=== PATIENT | female | born 1970 | race African-American/Black ===

== ENCOUNTER 2018-10-25 20:51 | Emergency (ER) | payer BC ==
--- NOTE | 2018-10-25 21:26 | EDPHYS ---
Physician Documentation [facility] Name: Batool Last Age: 48 yrs Sex: Female : 1970 Arrival Date: 10/25/2018 Time: 20:54 Bed 13 Private MD: ED Physician Sarbjit Arthur HPI: 10/25 21:07 This 48 yrs old Black Female presents to ER via Unassigned with complaints of Fall snw Injury. 21:07 Details of fall: The patient fell from an upright position, [facility]. Onset: The symptoms/episode began/occurred suddenly, just prior to arrival. Associated injuries: The patient sustained injury to the head, contusion, right lateral aspect of neck, strain. Severity of symptoms: At their worst the symptoms were very mild. It is unknown whether or not the patient has had similar symptoms in the past. It is unknown whether or not the patient has recently seen a physician. 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 - Social history:: Smoking status: Patient/guardian denies using tobacco, never smoked. - Ebola Screening: : No symptoms or risks identified at this time. ROS: 21:05 Constitutional: Negative for fever, chills, and weight loss, Eyes: Negative for injury, snw pain, redness, and discharge, ENT: Negative for injury, pain, and discharge, Neck: Negative for injury, pain, and swelling, Cardiovascular: Negative for chest pain, palpitations, and edema, Respiratory: Negative for shortness of breath, cough, wheezing, and pleuritic chest pain, Abdomen/GI: Negative for abdominal pain, nausea, vomiting, diarrhea, and constipation, Back: Negative for injury and pain, : Negative for injury, bleeding, discharge, and swelling, Skin: Negative for injury, rash, and discoloration, Neuro: Negative for headache, weakness, numbness, tingling, and seizure. 21:05 MS/extremity: Positive for injury or acute deformity, of the right lateral aspect of neck. Exam: 21:05 Constitutional: This is a well developed, well nourished patient who is awake, alert, snw and in no acute distress. Head/Face: Normocephalic, atraumatic. Eyes: Pupils equal round and reactive to light, extra-ocular motions intact. Lids and lashes normal. Conjunctiva and sclera are non-icteric and not injected. Cornea within normal limits. Periorbital areas with no swelling, redness, or edema. ENT: Nares patent. No nasal discharge, no septal abnormalities noted. Tympanic membranes are normal and external auditory canals are clear. Oropharynx with no redness, swelling, or masses, exudates, or evidence of obstruction, uvula midline. Mucous membranes moist. Chest/axilla: Normal chest wall appearance and motion. Nontender with no deformity. No lesions are appreciated. Cardiovascular: Regular rate and rhythm with a normal S1 and S2. No gallops, murmurs, or rubs. Normal PMI, no JVD. No pulse deficits. Respiratory: Lungs have equal breath sounds bilaterally, clear to auscultation and percussion. No rales, rhonchi or wheezes noted. No increased work of breathing, no retractions or nasal flaring. Abdomen/GI: Soft, non-tender, with normal bowel sounds. No distension or tympany. No guarding or rebound. No evidence of tenderness throughout. Back: No spinal tenderness. No costovertebral tenderness. Full range of motion. Skin: Warm, dry with normal turgor. Normal color with no rashes, no lesions, and no evidence of cellulitis. MS/ Extremity: Pulses equal, no cyanosis. Neurovascular intact. Full, normal range of motion. Neuro: Awake and alert, GCS 15, oriented to person, place, time, and situation. Cranial nerves II-XII grossly intact. Motor strength 5/5 in all extremities. Sensory grossly intact. Cerebellar exam normal. Normal gait. 21:05 Neck: External neck: tenderness, that is mild, that is moderate, of the right lateral aspect of neck, ROM/movement: pain, that is mild, with extension, Lymph nodes: no appreciated lymphadenopathy. Vital Signs: 20:49 BP 158 / 91; Pulse 72; Resp 18 S; Temp 98.3(TE); Pulse Ox 100% on R/A; Weight 117.93 kg cc3 (R); Height 5 ft. 8 in. (172.72 cm) (R); 20:49 Body Mass Index 39.53 (117.93 kg, 172.72 cm) cc3 MDM: 20:54 Patient medically screened. snw 21:04 Data interpreted: Pulse oximetry: on room air is 99 %. Interpretation: normal. snw Counseling: I had a detailed discussion with the patient and/or guardian regarding: the historical points, exam findings, and any diagnostic results supporting the discharge/admit diagnosis. ED course: declines pain medications and states she will take some aleve when she gets home. 10/26 02:04 Data reviewed: vital signs, nurses notes. snw 10/25 20:58 Order name: Chest Single View XRAY snw Administered Medications: No medications were administered Disposition: 10/25/18 21:25 Discharged to Home. Impression: Fall on same level from slipping, tripping and stumbling, Superficial injury of head, Strain of muscle, fascia and tendon at neck level. - Condition is Stable. - Discharge Instructions: Head Injury, Adult, Fall Prevention in the Home, Muscle Strain, Heat Therapy. - Prescriptions for orphenadrine citrate 100 mg Oral Tablet Sustained Release - take 1 tablet by ORAL route 2 times per day As needed; 20 tablet. - Work release form, Medication Reconciliation Form, Thank You Letter, Antibiotic Education, Prescription Opioid Use form. - Follow up: Private Physician; When: 2 - 3 days; Reason: Recheck today's complaints, Continuance of care, Re-evaluation by your physician. Follow up: Emergency Department; When: As needed; Reason: Worsening of condition. Addendum: 10/27/2018 08:26 Co-signature as Attending Physician, Sarbjit Arthur MD I agree with the assessment and c herrera plan of care. Signatures: Dispatcher [employer] Sarbjit Go MD MD cha Therrien, Shelly, MANAGER OF INTERNAL-C MANAGER OF INTERNAL-Ruyw Annika Redd cc3 Corrections: (The following items were deleted from the chart) 10/25 21:07 21:05 MS/extremity: Positive for injury or acute deformity, of the left lateral aspect snw of neck, snw 21:48 21:25 10/25/2018 21:25 Discharged to Home. Impression: Fall on same level from cc3 slipping, tripping and stumbling; Superficial injury of head; Strain of muscle, fascia and tendon at neck level. Condition is Stable. Forms are Medication Reconciliation Form, Thank You Letter, Antibiotic Education, Prescription Opioid Use. Follow up: Private Physician; When: 2 - 3 days; Reason: Recheck today's complaints, Continuance of care, Re-evaluation by your physician. Follow up: Emergency Department; When: As needed; Reason: Worsening of condition. snw
--- NOTE | 2018-10-25 21:26 | ER ---
Nurse's Notes [facility] Name: Batool Last Age: 48 yrs Sex: Female : 1970 Arrival Date: 10/25/2018 Time: 20:54 Bed 13 Private MD: Diagnosis: Fall on same level from slipping, tripping and stumbling;Superficial injury of head;Strain of muscle, fascia and tendon at neck level Presentation: 10/25 20:49 Presenting complaint: EMS states: "Right shoulder pain sustained from slipping on the cc3 floor". Transition of care: patient was not received from another setting of care. Onset of symptoms was October 25, 2018. Risk Assessment: Do you want to hurt yourself or someone else? Patient reports no desire to harm self or others. Initial Sepsis Screen: Does the patient meet any 2 criteria? No. Patient's initial sepsis screen is negative. Does the patient have a suspected source of infection? No. Patient's initial sepsis screen is negative. Care prior to arrival: None. 20:49 Method Of Arrival: EMS: [facility] cc3 20:49 Acuity: SILVANA 3 cc3 Triage Assessment: 21:14 General: Appears in no apparent distress. comfortable, Behavior is calm, cooperative, cc3 appropriate for age. Pain: Complains of pain in right lateral aspect of neck, right shoulder. EENT: No signs and/or symptoms were reported regarding the EENT system. Neuro: Level of Consciousness is awake, alert, obeys commands, Oriented to person, place, time, situation, Appropriate for age. Cardiovascular: Denies chest pain, Patient's skin is warm and dry. Respiratory: Airway is patent Respiratory effort is even, unlabored, Respiratory pattern is regular, symmetrical. GI: Abdomen is round obese. : No signs and/or symptoms were reported regarding the genitourinary system. Derm: No signs and/or symptoms reported regarding the dermatologic system. Musculoskeletal: Circulation, motion, and sensation intact. Range of motion: intact in all extremities. 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 - Social history:: Smoking status: Patient/guardian denies using tobacco, never smoked. - Ebola Screening: : No symptoms or risks identified at this time. Screenin:14 Abuse screen: Denies threats or abuse. Denies injuries from another. Nutritional cc3 screening: No deficits noted. Tuberculosis screening: No symptoms or risk factors identified. Fall Risk Ambulatory Aid- None/Bed Rest/Nurse Assist (0 pts). Gait- Normal/Bed Rest/Wheelchair (0 pts) Mental Status- Oriented to own ability (0 pts). Assessment: 21:14 General: see triage assessment. cc3 21:45 Reassessment: Patient appears in no apparent distress at this time. Patient and/or cc3 family updated on plan of care and expected duration. Pain level reassessed. Patient is alert, oriented x 3, equal unlabored respirations, skin warm/dry/pink. CLAUDETTE Strange discharged the patient home with prescription given. No IV cannula in situ. Patient left ER vitally stable and ambulatory with her family. Patient states feeling better. Patient states symptoms have improved. Vital Signs: 20:49 BP 158 / 91; Pulse 72; Resp 18 S; Temp 98.3(TE); Pulse Ox 100% on R/A; Weight 117.93 kg cc3 (R); Height 5 ft. 8 in. (172.72 cm) (R); 20:49 Body Mass Index 39.53 (117.93 kg, 172.72 cm) cc3 ED Course: 20:54 Patient arrived in ED. ds1 20:54 Alie Rivera FNP-C is PHCP. snw 20:54 Sarbjit Arthur MD is Attending Physician. snw 21:13 Chest Single View XRAY In Process Unspecified. EDMS 21:14 Annika Redd is Primary Nurse. cc3 21:14 Patient has correct armband on for positive identification. Placed in gown. Bed in low cc3 position. Call light in reach. Pulse ox on. NIBP on. 21:14 Arm band placed on right wrist. Patient notified of wait time. cc3 21:21 Triage completed. cc3 21:45 No provider procedures requiring assistance completed. Patient did not have IV access cc3 during this emergency room visit. Administered Medications: No medications were administered Outcome: 21:25 Discharge ordered by . josue 21:45 Discharged to home ambulatory, with family. cc3 21:45 Condition: stable 21:45 Discharge instructions given to patient, family, Instructed on discharge instructions, follow up and referral plans. medication usage, Demonstrated understanding of instructions, follow-up care, medications, Prescriptions given X 1. 21:48 Patient left the ED. cc3 Signatures: Dispatcher [employer] EDSC Alie Rivera, YURIDIA SYSTEMS AUDITOR-Martita Whitehead dsAnnika Paniagua cc3
--- NOTE | 2018-10-25 23:52 | RAD REPORT ---
EXAM DESCRIPTION: Randal Single View10/25/2018 9:11 pm CLINICAL HISTORY: Chest pain COMPARISON: none FINDINGS: The lungs appear clear of acute infiltrate. The heart is mildly enlarged IMPRESSION: No acute abnormalities displayed
== END 2018-10-25 21:48 | disposition home or self-care (01) ==
LOC: ER 20:51
DX: S00.90XA Unspecified superficial injury of unspecified part of head, initial encounter (principal); S16.1XXA Strain of muscle, fascia and tendon at neck level, initial encounter; W01.0XXA Fall on same level from slipping, tripping and stumbling without subsequent striking against object, initial encounter; Y92.511 Restaurant or cafe as the place of occurrence of the external cause; I10 Essential (primary) hypertension
CPT/HCPCS: 71045; 99284

== ENCOUNTER 2022-04-16 10:26 | Day surgery (SDC) | payer BC ==
[2022-04-12 16:26] LABS: Absolute Lymphocytes (CBC) 3.1 K/uL (0.7-4.9); Hematocrit 34.8 % (36.0-45.0); Lymphocytes % 30.5 % (15.3-44.8); MCV 75.7 fL (80-100); RBC Red Blood Cell Count 4.59 M/uL (3.86-4.86)
[2022-04-12 16:32] LABS: Specific Gravity 1.021 (1.005-1.030); Urine Bacteria <20 /HPF (<20); Urine Bilirubin NEGATIVE (Negative); Urine Blood Negative (Negative); Urine Clarity Clear (Clear); Urine Color Yellow (Yellow); Urine Glucose NEGATIVE (Negative); Urine Mucus 2+ /HPF (None Seen); Urine Protein TRACE (Negative); Urine RBC <5 /HPF (None Seen); Urine Urobilinogen Normal (Normal); Urine pH 6.5 (5.0-7.0)
[2022-04-16] MEDS ORDERED: SCOPOLAMINE HYDROBROMIDE PATCH TD ONE (11:04)
[2022-04-16] MEDS ORDERED: CEFAZOLIN 3 GM in NA CHLORIDE 0.9% 100 ML IVPB ONE (11:15)
[2022-04-16] MEDS ORDERED: CELECOXIB 100 MG CAPSULE ONE (11:19)
[2022-04-16] MEDS ORDERED: ACETAMINOPHEN 500 MG TAB ONE (11:19)
[2022-04-16 11:32] LABS: Urine Specific Gravity/Preg 1.025 (1.005-1.030)
[2022-04-16] MEDS: BUPIVACAINE 0.25% PF 30 ML VIAL ONE ×2 (12:19→13:26)
[2022-04-16] MEDS ORDERED: propofoL 200 MG/20 ML VIAL IV ONE (12:24)
[2022-04-16] MEDS ORDERED: FENTANYL CITR 100 MCG/2 ML ONE ×3 (12:24→16:07)
[2022-04-16] MEDS ORDERED: ROCURONIUM 50 MG/5 ML VIAL IV ONE (12:25)
[2022-04-16] MEDS ORDERED: ONDANSETRON 4 MG/2 ML VIAL ONE (12:26)
[2022-04-16] MEDS ORDERED: MIDAZOLAM HCL 2 MG/2 ML INJ ONE (12:26)
[2022-04-16] MEDS ORDERED: LIDOCAINE 2% MPF 5 ML VIAL ONE (12:26)
[2022-04-16] MEDS ORDERED: dexAMETHasone 4 MG/ML VIAL ONE ×2 (13:21→15:19)
[2022-04-16] MEDS ORDERED: VECURONIUM 10 MG/VIAL IV ONE (13:24)
[2022-04-16] MEDS ORDERED: KETOROLAC 30 MG/ML INJ ONE (15:19)
[2022-04-16] MEDS: Ringers Lactate 1,000 ML IV ONE ×2 (15:23→15:27)
[2022-04-16] MEDS ORDERED: Ringers Lactate 1,000 ML IV ONE (15:25)
[2022-04-16] MEDS ORDERED: HYDROCODONE/APAP 5/325 MG TAB ONE (17:49)
[2022-04-16 19:33] VITALS: BP 128/5; TEMP 97.1; O2SAT 100
--- NOTE | 2022-04-17 00:57 | OP ---
Date of Procedure: 04/16/2022 Surgeon: Saniya Shipman MD Plaster Machine Operator: Nilsa Hernandez. Preoperative Diagnoses: Menorrhagia, iron-deficiency anemia, and leiomyomata of the uterus. Postoperative Diagnoses: Menorrhagia, iron-deficiency anemia, and leiomyomata of the uterus. Procedures Performed: Total laparoscopic hysterectomy, bilateral salpingectomy, vaginal morcellation and cystoscopy. Anesthesia: General endotracheal. Ebl: 100. Urine Output: 200. Fluids: 1200 LR. Complications: None. Drains: None. Condition: Stable. Specimens: Uterus that is morcellated with fibroids on the side and tubes. Findings: Uterus was significantly enlarged with multiple large fibroids on morcellation through the vagina. The entire specimen was removed without any problems. Tubes were removed in 2 portions on each side. Ovaries were completely unremarkable and intact. On cystoscopy, both ureteric orifices were well visualized and had strong jets of urine from both and th ere was no evidence of any trauma to the bladder. This is a limited post procedure cystoscopy. Indications: The patient is a 52-year-old who presented with bleeding and anemia, referred to me by her primary care provider in [facility]. Her hemoglobin was 10.4 g at the initial visit. Signif icantly large fibroids. On ultrasound, she had multiple leiomyomata with the largest 6.9, next 5.9, and then several other smaller than that and a total of at least 5 were noted. 5.5, 5.7, pretty larg e leiomyomata. Then endometrial was sampled and there was no atypia or malignancy or leiomyosarcoma. I discussed about all the benefits and risks and alternatives of treatment of fibroids including la paroscopic myomectomy, uterine artery embolization, medical treatment for fibroids, and surgical dara tment definitively including hysterectomy. Description Of Procedure: After reviewing all the benefits and risks, the patient proceeded to conse nt for preservation of ovaries with removal of uterus and tubes. Possible vaginal morcellation and p ossible laparotomy were all discussed with the patient and she was consented and brought to the OR. 3 g of Ancef were given. SCDs were placed. A time-out was done. After patient was placed in a supi ne fashion on the operating table, general anesthesia was given. She was placed in a dorsal lithotom y position. Abdomen, vulva, vagina, and perineum were prepped and draped in a sterile fashion. Fole y was placed to drain the bladder and large VCare introduced into the uterus and fixed in place. Fol ey was attached for retrograde filling. A 1 cm supraumbilical incision was made with scalpel using the open laparoscopy technique. Fascia wa s incised and tagged with 0 Vicryl sutures on each side and peritoneum entered bluntly. S retractors were placed, Comfort introduced and after adequate insufflation, site of entry was checked and was un remarkable. Other abdominal surfaces were unremarkable as well. The patient was placed in Trendelen ramesh position, approximately 20 degrees and then pelvic survey was performed. Both ureters were visu alized from the pelvic brim to the ureteric tunnel on both sides without any significant distortion; however, the fibroids were large enough to enlarge the vessels and so after having a good visualizati on of the vessels and the relation to the ureters, procedure was started. The tubes were removed wit h the LigaSure. Then, the peritoneum under the round ligament between the uteroovarian and round was opened up. Then the round ligament was taken down with the help of the LigaSure. Anterior peritone um was taken down to raise the bladder flap all the way to the opposite round ligament with the help of the LigaSure. Then, the round ligament on the right side was taken down to utero-ovarian ligament and broad ligament and mesosalpinx taken down. Posterior peritoneum was incised all the way to the uterosacrals on both sides. Ureters were dissected and uterine vessels were isolated seeing the rela tionship of the place that these were crossing over. Then vessels were taken down after the bladder flap was fully raised and the bladder was dissected at least a cm and half below the cup and the vess els were taken down with the help of the LigaSure as well as bipolar and curved [place]. Then these were cut with the help of the LigaSure and then the cardinal ligaments were taken down with the help of the bipolar and monopolar. Anterior colpotomy was performed with a monopolar hook blade and then off to the sides the dissection was performed with the help of the LigaSure and then posteriorly, th e uterosacral ligament attachment was taken down with the help of the LigaSure and then the bipolar w as used for taking down the cardinal ligaments. Colpotomy performed with a monopolar hook blade alvarez woods it all the way back posteriorly from the right side to the left and then taking the left side down . The specimen was pulled out through the vagina. Romano speculum was placed in the posterior wall and 2 small were placed in the anterior vaginal canal and using mass clamps, the specimen was pulled out through the vagina and morcellated progressively. It took about 25 minutes for me extract the entire uterus and this was handed off for permanent path ology. Then vaginal closure was placed then went back laparoscopically, after changing gloves and go wn. Thorough irrigation and suction were performed and at 5 o'clock position, there was hemostasis t o be secured with the help of the tip of a bipolar and that was done. Thorough irrigation and suction were performed again and 0 Vicryl suture simple was used to close the angles and then 3 [id number] in the center including the uterosacrals back to the vaginal cuff . Thorough irrigation and suction were performed. No evidence of electrical, mechanical, or thermal injury to the ureters. The trocars were removed under direct vision and gas was desufflated. The o varies were vascular and intact. Fascia at the umbilicus was closed with the tag 0 Vicryl sutures ti ed to each of the subcutaneous and another 0 Vicryl simple stitch and then a simple 0 Vicryl stitch o n the fascia at the suprapubic area. All interrupted 4-0 chromic at the subcutaneous sites for closu re. Lyles was removed, vaginal occluding sponge was removed and then the cystoscopy performed with 17-Michele nch sheath, 30-degree lens normal saline. There was excellent visualization of the base of the bladd er and area above the trigone. Both ureteric orifices were well visualized and there were strong jet s of urine from both. After the bladder was drained, then vagina was cleaned up. Instrument and spo nge counts x3 were correct at the end of the case. The patient tolerated the procedure well. She re covered from anesthesia and taken to PACU in stable condition. Her was debriefed about her p rocedure and her outcome. She will follow up with us after discharge today in 1 week. RENE/SUPRIYA Voice ID: [id number] Report ID: [id number]
== END 2022-04-16 19:35 | disposition home or self-care (01) ==
LOC: PRE 10:26 → OR 19:35
PROVIDERS: ATTEND Obstetrics & Gynecology
PROC: 0UT74ZZ Resection of Bilateral Fallopian Tubes, Percutaneous Endoscopic Approach (ICD-10-PCS; 2022-04-16)
PROC: 0UT94ZZ Resection of Uterus, Percutaneous Endoscopic Approach (ICD-10-PCS; principal; 2022-04-16 12:00)
DX: N92.0 Excessive and frequent menstruation with regular cycle (principal); D50.0 Iron deficiency anemia secondary to blood loss (chronic); D25.9 Leiomyoma of uterus, unspecified; I10 Essential (primary) hypertension; N88.8 Other specified noninflammatory disorders of cervix uteri; N83.8 Other noninflammatory disorders of ovary, fallopian tube and broad ligament
CPT/HCPCS: 85025; 81001; 36415; 86900; 86850; 81025; 86870; 86901; 88307; 86922 ×2; 58573; J2704; J1100 ×2; J2001; J2250; J3010 ×3; J7120 ×2; J2405; J0690

== ENCOUNTER 2023-11-06 16:26 | Emergency (ER) | payer BC ==
--- OUTSIDE RECORDS SUMMARY | 2023-11-06 16:31 | XMS REPORT | Continuity of Care Document ---
Author Name Unknown Address [address] [place] [address] [facility]connect Address [address] [facility] [address] [place] [address] Care Team Providers Care Game Author Name Role Phone Yuki GARNER, Sydnee Primary Care Physici an TREASURE JENKINS Attending Clinician Unavailable YULIET OAKLEY Attending Clinician Unavailable LAB90 Attending Clinician Unavailable SHAHID CAMPBELL Attending Clinician UnavailJOHN PAUL Bae Attending Clinician Unavailable LAB47 Attending Clinician Unavailable JOVANI NIETO Attending Clinician Unava ilESTEBAN Reyez Attending Clinician Unavailable YRN PAREDES Attending Clinician Unavailable [email or web address] Attending Clinician Unavaila napoleon LI MD Attending Clinician Unavailab SYDNEE Fonseca Attending Clinician Giselle ESTUARDO Marr Attending Clinician Unavailable EL MORGAN Attending Clinician Unavailable LENNY KAMINSKI Attending Clinician Unavailab FRANCHESCA Harvey Attending Clinician Unavailable Yuliet Dobbins Attending Clinician [phone] LAB45 Attending Clinician Unavailable Sydnee Mirza MD Attending Clinician YANETH HERNANDEZ Attending Clinician Unavailable [email or web address] Admitting Clinician YANETH Parra Admitting Clinician Unavailable Payers Payer Name Policy Type Policy Number Effective Date Expirati on Date Source BCBS 2 [id number] 2019 00:00:[place] [employer] [id number] 2020 00:00:[place] [id number] 2020 00:00:00 Problems Condition Name Condition Details Condition Category Status Onset Date Resolution Date Last Treatment Date Treating Clinician Comments Source Iron deficiency anemia due to chronic blood loss Iron deficiency anemia due to chronic blood loss Disease Active 8-15 00:00: 00 Leigh Seybold - Externa l Primary hypertensi on Primary hypertensi on Disease Active 2020-05 00:00: 00 Leigh Seybold - Externa l Hyperlipem ia Hyperlipem ia Disease Active 2020-05 00:00: 00 Leigh Seybold - Externa l Severe obesity (BMI 35.0-35.9 with comorbidit y) Severe obesity (BMI 35.0-35.9 with comorbidit y) Disease Active 2020-05 00:00: 00 Leigh Seybold - Externa l Family history of breast cancer in mother Family history of breast cancer in mother Disease Active 2020-05 00:00: 00 Leigh Sedaylinold - Externa l Anemia Anemia Disease Active 2020-05 00:00: 00 Leigh Seybold - Externa l Morbid obesity Morbid obesity Disease Active 2020-05 00:00: 00 Leigh Seybold - Externa l Social History Social Habit Start Date Stop Date Quantity Comments Source Gender identity Maryan ey Seybold - External Sexual orientation K elsey Seybold - External Exposure to SARS-CoV-2 (event) Not sure Leigh Se ybold History SDOH Alcohol Frequency Leigh Hall bold - External History SDOH Alcohol Std Drinks Leigh Hebert ybold - External History SDOH Alcohol Binge Leigh Hebertybold - External Alcoholic beverage intake 2023-10-14 00:00:00 2023-10-14 00:00:00 .14 /d Leigh Heebrtybold - External Tobacco use and exposure 2023-10-14 00:00:00 2023-10-14 00:00:00 Smokeless tobacco non-user Leigh Bautista - External Alcohol intake 2023-07-22 00:00:00 2023-07-22 00:00:00 .14 /d Leigh Bautista - External History of Social function 2023-01-30 00:00:00 2023-01-30 00:00:00 Leigh Bautista - External Alcohol Comment 2021-03-23 00:00:00 2021-03-23 00:00:00 rarely Leigh Bautista - External Sex [birth year] at 1970 00:00:00 1970 00:00:00 Leigh Bautista - External Smoking Status Start Date Stop Date Source Never smoked tobacco Leigh Bautista - External Medications Ordered Medication Name Filled Medication Name Start Date Stop Date Current Medication? Ordering Clinician Indication Dosage Frequency Signature (SIG) Comments Components Source Ketoconazol e 2 % apply externally Cream 10-13 08:05: 48 10-13 00:00 :00 No Leigh mancilla Losartan Potassium-H CTZ 50-12.5 MG oral Tablet 10-13 00:00: 00 Yes [id number] 1{tbl} Take 1 tablet by mouth 2 times daily. Leigh mancilla Carvedilol (Coreg) 3.125 MG oral Tablet 10-13 00:00: 00 Yes [id number] 3.125mg Take 1 tablet (3.125 mg total) by mouth in the morning and 1 tablet (3.125 mg total) in the evening. Take with meals. Leigh mancilla Rosuvastati n Calcium 10 MG oral Tablet 10-13 00:00: 00 Yes [id number] 10mg Take 1 tablet (10 mg total) by mouth daily. Leigh mancilla hydroCHLORO thiazide 25 MG oral Tablet 09-30 00:00: 00 10-13 00:00 :00 No [id number] 25mg Take 1 tablet (25 mg total) by mouth daily. Leigh mancilla Ergocalcife rol 1.25 MG (03875 UT) oral Capsule 2024-0 5-16 00:00: 00 Yes [id number] 70613S Take 1 capsule (50,000 units total) by mouth once a week. Leigh mancilla Losartan Potassium (COZAAR) 50 MG oral Tablet 09-24 00:00: 00 10-13 00:00 :00 No [id number] 50mg Take 1 tablet (50 mg total) by mouth daily. Leigh mancilla Rosuvastati n Calcium 20 MG oral Tablet 07-25 00:00: 00 10-13 00:00 :00 No [id number] 20mg Take 1 tablet (20 mg total) by mouth daily. Leigh mancilla NEOMYCIN-PO LYMYXIN-HC, OTIC, 1 % otic Solution - 00:00: 00 10-13 00:00 :00 No [id number] 42973 2[drp] Q.95217320 [id number] 3D Place 2 drops into the right ear 3 times daily as needed. Leigh mancilla PEG-ELECTRO LYTE SOLN (Golytely) 236 g oral Recon Soln 2022-05 2-28 00:00: 00 07-21 00:00 :00 No USE DIRECTED. Leigh mancilla ALBUTEROL HFA 108 (90 Base) MCG/ACT IN AERS 2022-05 0-17 00:00: 00 04-23 00:00 :00 No [id number] 2{puff} Q.25D TAKE 2 PUFFS BY MOUTH EVERY 6 HOURS NEEDED FOR WHEEZE Leigh mancilla Docusate Sodium (Stool Softener) 100 MG oral Capsule 20 16:04: 24 01-30 00:00 :00 No 100mg Take 1 capsule (100 mg total) by mouth every 24 hours Leigh mancilla Albuterol HFA 108 (90 Base) MCG/ACT IN AERS 920 00:00: 00 Yes [id number] 2{puff} Q.25D Inhale 2 puffs into the lungs every 6 hours as needed for wheezing. Leigh mancilla Promethazin e-DM 6.25-15 MG/5ML oral Syrup 01-30 00:00: 00 04-23 00:00 :00 No [id number] 5mL Q.25D Take 5 mL by mouth 4 times daily as needed for cough. Leigh mancilla Benzonatate (Tessalon Perles) 100 MG oral Capsule 01-30 00:00: 00 04-23 00:00 :00 No [id number] 100mg Q.34935425 [id number] 3D Take 1 capsule (100 mg total) by mouth 3 times daily as needed for cough. Leigh mancilla methylPREDN ISolone 4 MG oral Tablet Therapy Pack 01-30 00:00: 00 04-23 00:00 :00 No [id number] 1{lauri} Take 1 lauri by mouth See Admin Instructio ns Use as directed. Leigh mancilla Amoxicillin -Pot Clavulanate 875-125 MG oral Tablet 01-28 00:00: 00 04-23 00:00 :00 No 1{tbl} Take 1 tablet by mouth 2 times daily. Leigh mancilla FLUTICASONE PROPIONATE, NASAL, 50 MCG/ACT nasal Suspension 01-28 00:00: 00 04-23 00:00 :00 No 100ug Use 2 sprays (100 mcg total) in each nostril daily. Leigh mancilla Iron Dextran (INFED) 975 mg in sodium chloride 0.9 % 500 mL infusion 01-22 17:45: 00 01-22 19:17 :00 No [id number] 975mg 975 mg, at 500 mL/hr, Administer over 60 Minutes, intravenou s, ONCE, On Sat01/22/23 at 1245, For 1 dose, Solumedrol is recommende d only if patient has: Asthma, or Allergy to more than one drug, or History of inflammato ry arthritis. Solu-Medro l is recommende d only if the patient has: None of the below. Please indicate the Primary and Secondary diagnoses for Iron Treatment: Primary diagnosis: D50.0 Iron deficiency anemia secondary to blood loss Secondary diagnosis: K90.4 Malabsorpt ion due to intoleranc e, not elsewhere classified Monitor and record vital signs at the completion of the Infed infusion. Leigh mancilla Iron Dextran (INFED) 25 mg in sodium chloride 0.9 % 50 mL infusion 01-22 17:30: 00 01-22 17:20 :00 No [id number] 25mg 25 mg, at 300 mL/hr, Administer over 10 Minutes, intravenou s, ONCE, On Sat01/22/23 at 1230, For 1 dose, Observe the patient for at least 1 hour after test dose administra tion. Monitor and record vital signs at 15 minutes, 30 minutes, and 60 minutes for 1 hour observatio n. Leigh mancilla Docusate Sodium (Stool Softener) 100 MG oral Capsule 12-25 14:06: 46 Yes 100mg Take 1 capsule (100 mg total) by mouth every 24 hours Leigh mancilla Docusate Sodium (Stool Softener) 100 MG oral Capsule 12-17 15:33: 31 Yes 100mg Take 1 capsule (100 mg total) by mouth every 24 hours Leigh mancilla Na Sulfate-K Sulfate-Mg Sulf (SUPREP BOWEL PREP KIT) 17.5-3.13-1 .6 GM/177ML oral Solution 12-17 00:00: 00 01-30 00:00 :00 No [id number] Instructio ns provided to patient. Follow instructio ns provided by provider. Leigh mancilla Ferrous Gluconate 240 (27 Fe) MG oral Tablet 10-09 00:00: 00 01-30 00:00 :00 No 240mg Take 1 tablet (240 mg total) by mouth daily Leigh mancilla Docusate Sodium (Stool Softener) 100 MG oral Capsule 09-17 13:05: 57 Yes 100mg Take 1 capsule (100 mg total) by mouth every 24 hours Leigh mancilla Ferrous Gluconate 239 (27 Fe) MG oral Tablet 09-17 00:00: 00 Yes 1{tbl} Take 1 tablet by mouth daily Leigh mancilla Docusate Sodium (Stool Softener) 100 MG oral Capsule 09-03 11:13: 42 Yes 100mg Take 1 capsule (100 mg total) by mouth every 24 hours Leigh mancilla Amlodipine Besylate 10 MG oral Tablet 09-03 00:00: 00 10-13 00:00 :00 No [id number] 10mg Take 1 tablet (10 mg total) by mouth daily Leigh mancilla Rosuvastati n Calcium 10 MG oral Tablet 09-03 00:00: 00 07-21 00:00 :00 No [id number] 10mg Take 1 tablet (10 mg total) by mouth daily Leigh mancilla Amlodipine Besylate 10 MG oral Tablet 2021-05 00:00: 00 09-03 00:00 :00 No [id number] TAKE 1 TABLET BY MOUTH EVERY DAY Leigh mancilla Rosuvastati n Calcium 10 MG oral Tablet 2021-05 00:00: 00 09-03 00:00 :00 No [id number] 10mg Take 1 tablet (10 mg total) by mouth daily Leigh mancilla Cyclobenzap rine HCl 5 MG oral Tablet 02-06 00:00: 00 09-03 00:00 :00 No [id number] 5mg Q.[id number] 3D Take 1 tablet (5 mg total) by mouth 3 times daily as needed for muscle spasms Leigh mancilla Ketoconazol e 2 % apply externally Cream 02-06 00:00: 00 09-03 00:00 :00 No [id number] Apply to affected area daily Leigh mancilla Fluconazole 150 MG oral Tablet 02-06 00:00: 00 09-03 00:00 :00 No [id number] 150mg Take 1 tablet (150 mg total) by mouth once a week Leigh mancilla Nitrofurant oin Monohyd Macro 100 MG oral Capsule 9-27 00:00: 00 02-12 04:59 :00 No [id number] 100mg Take 1 capsule (100 mg total) by mouth 2 times daily for 5 days Leigh mancilla Amlodipine Besylate 10 MG oral Tablet 5- 00:00: 00 Yes [id number] TAKE 1 TABLET BY MOUTH EVERY DAY Leigh mancilla Ferrous Sulfate 325 (65 Fe) MG oral Tablet - 00:00: 00 Yes [id number] 325mg Take 1 tablet (325 mg total) by mouth daily (with breakfast) Leigh mancilla Rosuvastati n Calcium 10 MG oral Tablet -12 00:00: 00 Yes [id number] 10mg Take 10 mg by mouth daily Leigh Bautista Atorvastati n Calcium 10 MG oral Tablet 2020-05 10:14: 30 03-23 00:00 :00 No 10mg Take 10 mg by mouth daily Leigh Bautista Amlodipine Besylate 10 MG oral Tablet 2020-05 00:00: 00 Yes [id number] 10mg Take 1 tablet (10 mg total) by mouth daily Leigh Bautista Atorvastati n Calcium 10 MG oral Tablet 2020-05 00:00: 00 Yes [id number] 10mg Take 1 tablet (10 mg total) by mouth daily Leigh Bautitsa Amlodipine Besylate 10 MG oral Tablet 2020-05 007 00:00: 00 03-23 00:00 :00 No Leigh Bautista Vital Signs Vital Name Observation Time Observation Value Comments S ireneritesh Systolic blood pressure 2023-10-14 13:07:00 150 mm[Hg] Leigh yañez - External Diastolic blood pressure 2023-10-14 13:07:00 92 mm[Hg] Leigh yañez - External Body temperature 2023-10-14 13:01:00 36.06 Jacque Leigh Bautista - External Respiratory rate 2023-10-14 13:01:00 16 /min Leigh Bautista - External Body height 2023-10-14 13:01:00 172.7 cm Maryan ey Seybold - External Body weight 2023-10-14 13:01:00 125.193 kg Maryan ey Seybold - External BMI 2023-10-14 13:01:00 41.97 kg/m2 Maryan ey Seybold - External Systolic blood pressure 2023-07-22 18:42:00 132 mm[Hg] Leigh Seybo ld - External Diastolic blood pressure 2023-07-22 18:42:00 86 mm[Hg] Leigh Seybo ld - External Heart rate 2023-07-22 18:38:00 80 /min Kelse y Seybold - External Body temperature 2023-07-22 18:38:00 36.11 Jacque Leigh Seybold - External Respiratory rate 2023-07-22 18:38:00 17 /min Leigh Seybold - External Body weight 2023-07-22 18:38:00 126.1 kg Maryan ey Seybold - External BMI 2023-07-22 18:38:00 42.27 kg/m2 Maryan ey Seybold - External Systolic blood pressure 2023-04-23 16:54:00 135 mm[Hg] Leigh Seybo ld - External Diastolic blood pressure 2023-04-23 16:54:00 93 mm[Hg] Leigh Seybo ld - External Heart rate 2023-04-23 16:54:00 75 /min Kelse y Seybold - External Body temperature 2023-04-23 16:54:00 36.06 Jacque Leigh Seybold - External Respiratory rate 2023-04-23 16:54:00 16 /min Leigh Seybold - External Body height 2023-04-23 16:54:00 172.7 cm Maryan ey Seybold - External Body weight 2023-04-23 16:54:00 122.018 kg Maryan ey Seybold - External BMI 2023-04-23 16:54:00 40.90 kg/m2 Maryan ey Seybold - External Systolic blood pressure 2023-01-22 16:33:00 136 mm[Hg] Leigh Seybo ld - External Diastolic blood pressure 2023-01-22 16:33:00 85 mm[Hg] Leigh Seybo ld - External Heart rate 2023-01-22 16:33:00 78 /min Kelse y Seybold - External Body temperature 2023-01-22 16:33:00 36.78 Jacque Leigh Seybold - External Respiratory rate 2023-01-22 16:33:00 18 /min Leigh Seybold - External Body height 2023-01-22 16:33:00 172.7 cm Maryan ey Seybold - External Body weight 2023-01-22 16:33:00 123.832 kg Maryan ey Seybold - External BMI 2023-01-22 16:33:00 41.51 kg/m2 Maryan ey Seybold - External Oxygen saturation in Arterial blood by Pulse oximetry 2023-01-22 16:33:00 98 /min Leigh Seybo ld - External Systolic blood pressure 2022-12-25 19:06:00 135 mm[Hg] Leigh Seybo ld - External Diastolic blood pressure 2022-12-25 19:06:00 82 mm[Hg] Leigh Seybo ld - External Heart rate 2022-12-25 19:06:00 64 /min Kelse y Seybold - External Body temperature 2022-12-25 19:06:00 36.78 Jacque Leigh Seybold - External Respiratory rate 2022-12-25 19:06:00 18 /min Leigh Seybold - External Body height 2022-12-25 19:06:00 172.7 cm Maryan ey Seybold - External Body weight 2022-12-25 19:06:00 121.7 kg Maryan ey Seybold - External BMI 2022-12-25 19:06:00 40.79 kg/m2 Maryan ey Seybold - External Oxygen saturation in Arterial blood by Pulse oximetry 2022-12-25 19:06:00 100 /min Leigh Seybo ld - External Systolic blood pressure 2022-12-17 20:31:00 145 mm[Hg] Leigh Seybo ld - External Diastolic blood pressure 2022-12-17 20:31:00 85 mm[Hg] Leigh Seybo ld - External Heart rate 2022-12-17 20:31:00 86 /min Kelse y Seybold - External Body temperature 2022-12-17 20:31:00 36.72 Jacque Leigh Seybold - External Respiratory rate 2022-12-17 20:31:00 20 /min Leigh Seybold - External Body height 2022-12-17 20:31:00 172.7 cm Maryan ey Seybold - External Body weight 2022-12-17 20:31:00 122.925 kg Maryan ey Seybold - External BMI 2022-12-17 20:31:00 41.21 kg/m2 Maryan ey Seybold - External Systolic blood pressure 2022-09-17 18:01:00 150 mm[Hg] Leigh Seybo ld - External Diastolic blood pressure 2022-09-17 18:01:00 93 mm[Hg] Leigh Seybo ld - External Heart rate 2022-09-17 18:01:00 68 /min Kelse y Seybold - External Body temperature 2022-09-17 18:01:00 36.94 Jacque Legih Seybold - External Respiratory rate 2022-09-17 18:01:00 16 /min Leigh Seybold - External Body height 2022-09-17 18:01:00 172.7 cm Maryan ey Seybold - External Body weight 2022-09-17 18:01:00 119.976 kg Maryan ey Seybold - External BMI 2022-09-17 18:01:00 40.22 kg/m2 Maryan ey Seybold - External Oxygen saturation in Arterial blood by Pulse oximetry 2022-09-17 18:01:00 100 /min Leigh Seybo ld - External Systolic blood pressure 2022-09-03 16:05:00 134 mm[Hg] Leigh Seybo ld - External Diastolic blood pressure 2022-09-03 16:05:00 92 mm[Hg] Leigh Seybo ld - External Heart rate 2022-09-03 16:05:00 70 /min Kelse y Seybold - External Body temperature 2022-09-03 16:05:00 36.56 Jacque Leigh Seybold - External Respiratory rate 2022-09-03 16:05:00 16 /min Leigh Seybold - External Body height 2022-09-03 16:05:00 172.7 cm Maryan ey Seybold - External Body weight 2022-09-03 16:05:00 125.102 kg Maryan ey Seybold - External BMI 2022-09-03 16:05:00 41.94 kg/m2 Maryan ey Seybold - External Body temperature 2022-05-29 16:11:00 36.28 Jacque Leigh Seybold - External Respiratory rate 2022-05-29 16:11:00 16 /min Leigh Seybold - External Body height 2022-05-29 16:11:00 172.7 cm Maryan ey Seybold - External Body weight 2022-05-29 16:11:00 121.564 kg Maryan ey Seybold - External BMI 2022-05-29 16:11:00 40.75 kg/m2 Maryan ey Seybold - External Systolic blood pressure 2022-05-29 16:11:00 126 mm[Hg] Leigh Seybo ld - External Diastolic blood pressure 2022-05-29 16:11:00 82 mm[Hg] Legih Seybo ld - External Heart rate 2022-05-29 16:11:00 76 /min Kelse y Seybold - External Systolic blood pressure 2022-02-06 15:17:00 131 mm[Hg] Leigh Seybo ld - External Diastolic blood pressure 2022-02-06 15:17:00 64 mm[Hg] Leigh Seybo ld - External Heart rate 2022-02-06 15:17:00 55 /min Kelse y Seybold - External Body temperature 2022-02-06 15:17:00 36.78 Jacque Leigh Seybold - External Respiratory rate 2022-02-06 15:17:00 17 /min Leigh Seybold - External Body height 2022-02-06 15:17:00 172.7 cm Maryan ey Seybold - External Body weight 2022-02-06 15:17:00 118.842 kg Maryan ey Seybold - External BMI 2022-02-06 15:17:00 39.84 kg/m2 Maryan ey Seybold - External Systolic blood pressure 2021-08-11 15:31:00 143 mm[Hg] Leigh Seybo ld Diastolic blood pressure 2021-08-11 15:31:00 89 mm[Hg] Leigh Seybo ld Heart rate 2021-08-11 15:31:00 86 /min Kelse y Seybold Body temperature 2021-08-11 15:31:00 37.06 Jacque Leigh Seybold Respiratory rate 2021-08-11 15:31:00 14 /min Leigh Seybold Body height 2021-08-11 15:31:00 172.7 cm Maryan ey Seybold Body weight 2021-08-11 15:31:00 116.438 kg with shoes Maryan ey Seybold BMI 2021-08-11 15:31:00 39.03 kg/m2 Maryan ey Seybold Systolic blood pressure 2021-03-23 15:55:00 122 mm[Hg] Leigh Seybo ld Diastolic blood pressure 2021-03-23 15:55:00 84 mm[Hg] Leigh Seybo ld Heart rate 2021-03-23 15:55:00 74 /min Kelse y Seybold Body temperature 2021-03-23 15:55:00 36.56 Jacque Leigh Seybold Respiratory rate 2021-03-23 15:55:00 16 /min Leigh Seybold Body height 2021-03-23 15:55:00 172.7 cm Maryan ey Seybold Body weight 2021-03-23 15:55:00 117.935 kg Maryan ey Seybold BMI 2021-03-23 15:55:00 39.53 kg/m2 Maryan ey Seybold Encounters Start Date/Time End Date/Time Encounter Type Admission Type Attending [facility] Care Department Encounter ID Source 2024-04-21 10:40:00 2024-04-21 10:40:00 Outpatient TREASURE JENKINS [id number] Leigh Seybhussain 2023-11-25 09:30:00 2023-11-25 09:30:00 Outpatient YULIET OAKLEY [id number] Leigh Hebertybhussain 2023-11-06 00:00:00 2023-11-06 00:00:00 Outpatient YULIET OAKLEY [id number] Leigh Seybhussain 2023-11-05 00:00:00 2023-11-05 00:00:00 Outpatient YULIET OAKLEY [id number] Leigh Seybhussain 2023-10-16 00:00:00 2023-10-16 00:00:00 Outpatient HUNDL, YULIET BECERRIL LEGIH [id number] Leigh Seybold 2023-10-15 00:00:00 2023-10-15 00:00:00 Outpatient HUNDL, YULIET BECERRIL LEIGH [id number] Leigh Seybold 2023-10-14 08:45:00 2023-10-14 08:45:00 Outpatient LAB90 LEIGH LEIGH [id number] Leigh Seybold 2023-10-14 08:00:00 2023-10-14 08:00:00 Outpatient HUNDL, YULIET LEIGH BECERRIL [id number] Leigh Seybold 2023-10-01 09:30:00 2023-10-01 09:30:00 Outpatient SHANNAN, SHAHID LEIGH BECERRIL [id number] Leigh Seybold 2023-10-01 00:00:00 2023-10-01 00:00:00 Outpatient PREZAS, JOHN PAUL LEIGH BECERRIL [id number] Leigh Seybold 2023-10-01 00:00:00 2023-10-01 00:00:00 Outpatient HUNDL, YULIET LEIGH BECERRIL [id number] Leigh Seybold 2023-09-30 00:00:00 2023-09-30 00:00:00 Outpatient HUNDL, YULIET LEIGH LEIGH [id number] Leigh Seybold 2023-09-25 00:00:00 2023-09-25 00:00:00 Outpatient HUNDL, YULIET LEIGH BECERRIL [id number] Leigh Seybold 2023-09-24 11:40:00 2023-09-24 11:40:00 Outpatient LAB90 LEIGH BECERRIL [id number] Leigh Seybold 2023-09-24 00:00:00 2023-09-24 00:00:00 Outpatient HUNDL, YULIET LEIGH BECERRIL [id number] Leigh Seybold 2023-07-22 14:25:00 2023-07-22 14:25:00 Outpatient LAB47 LEIGH BECERRIL [id number] Leigh Seybold 2023-07-22 13:40:00 2023-07-22 13:40:00 Outpatient JOVANI NIETO [id number] [facility] 2023-07-17 14:30:00 2023-07-17 14:30:00 Outpatient ESTEBAN STORM LEIGH BECERRIL [id number] [facility] 2023-06-25 00:00:00 2023-06-25 00:00:00 Outpatient JOHN PAUL GALVAN LEIGH BECERRIL [id number] [facility] 2023-05-27 09:00:00 2023-05-27 09:00:00 Outpatient LEIGH BECERRIL [id number] [facility] 2023-05-27 00:00:00 2023-05-27 00:00:00 Outpatient YRN PAREDES [id number] [facility] 2023-05-11 00:00:00 2023-05-11 00:00:00 Outpatient GC_GCBZW_Ka diyala_S PRIV PRIV [id number] [facility] 2023-05-09 00:00:00 2023-05-09 00:00:00 Outpatient YRN PAREDES [id number] [facility] 2023-04-23 10:40:00 2023-04-23 10:40:00 Outpatient JENNIFERTREASURE SOLORIO LEIGH BECERRIL [id number] [facility] 2023-04-16 11:20:00 2023-04-16 11:20:00 Outpatient IRENE LEIGH BECERRIL [id number] [facility] 2023-04-16 00:00:00 2023-04-16 00:00:00 Outpatient JOHN PAUL GALVAN LEIGH BECERRIL [id number] [facility] 2023-04-16 00:00:00 2023-04-16 00:00:00 Outpatient GC_GCBZW_Ka diyala_S PRIV PRIV [id number] [facility] 2023-04-15 00:00:00 2023-04-15 00:00:00 Outpatient YRN PAREDES [id number] [facility] 2023-04-11 12:00:00 2023-04-11 12:00:00 Outpatient YRN PAREDES [id number] [facility] 2023-04-02 00:00:00 2023-04-02 00:00:00 Outpatient MD LEIGH SAUL [id number] [facility] 2023-02-26 00:00:00 2023-02-26 00:00:00 Outpatient YULIET OAKLEY [id number] [facility] 2023-01-30 16:00:00 2023-01-30 16:00:00 Outpatient TONY YULIET BECERRIL [id number] [facility] 2023-01-29 00:00:00 2023-01-29 00:00:00 Outpatient SYDNEE GARCIA [id number] [facility] 2023-01-28 09:15:00 2023-01-28 09:15:00 Outpatient ESTUARDO WOODWARD [id number] [facility] 2023-01-22 11:30:00 2023-01-22 11:30:00 Outpatient IVEL Segal [id number] [facility] 2023-01-15 00:00:00 2023-01-15 00:00:00 Outpatient LENNY KAMINSKI [id number] [facility] 2022-12-25 14:00:00 2022-12-25 14:00:00 Outpatient TREASURE JENKINS [id number] [facility] 2022-12-25 00:00:00 2022-12-25 00:00:00 Outpatient FRANCHESCA LICEA [id number] Leigh Seybold 2022-12-24 10:40:00 2022-12-24 10:40:00 Outpatient GREGORY CLEVELANDMIESHA BECERRIL [id number] [facility] 2022-12-20 14:20:00 2022-12-20 14:20:00 Outpatient IRENE BECERRIL [id number] Leigh Seybold 2022-12-17 15:45:00 2022-12-17 15:45:00 Outpatient YRN PAREDES [id number] [facility] 2022-12-17 00:00:00 2022-12-17 00:00:00 Outpatient YRN PAREDES [id number] [facility] 2022-12-14 00:00:00 2022-12-14 00:00:00 Outpatient [facility]ULIET OAKLEY [id number] [facility] 2022-12-14 00:00:00 2022-12-14 00:00:00 Outpatient MD LEIGH SAUL [id number] [facility] 2022-12-12 00:00:00 2022-12-12 00:00:00 Outpatient GC_GCBZW_Ka diyala_S PRIV PRIV [id number] [facility] 2022-12-06 00:00:00 2022-12-06 00:00:00 Outpatient GC_GCBZW_Ka diyala_S PRIV PRIV [id number] [facility] 2022-11-21 00:00:00 2022-11-21 00:00:00 Outpatient GC_GCBZW_Ka diyala_S PRIV PRIV [id number] [facility] 2022-11-20 00:00:00 2022-11-20 00:00:00 Outpatient GC_GCBZW_Ka diyala_S PRIV PRIV [id number] [facility] 2022-10-09 00:00:00 2022-10-09 00:00:00 Outpatient TREASURE JENKINS LEIGH BECERRIL [id number] [facility] 2022-09-17 13:20:00 2022-09-17 13:20:00 Outpatient CLEVELAND JENKINSMIESHA BECERRIL [id number] [facility] 2022-09-06 00:00:00 2022-09-06 00:00:00 Outpatient TONY YULIET BECERRIL [id number] [facility] 2022-09-03 11:50:00 2022-09-03 11:50:00 Outpatient IRENE BECERRIL [id number] [facility] 2022-09-03 11:00:00 2022-09-03 11:00:00 Outpatient HUNDL, YULIET LEIGH BECERRIL [id number] [facility] 2022-08-13 09:30:00 2022-08-13 09:30:00 Outpatient HUNDL, YULIET LEIGH BECERRIL [id number] Leigh Bautista 2022-05-29 10:45:00 2022-05-29 10:45:00 Outpatient LAB90 LEIGH BECERRIL [id number] [facility] 2022-05-29 10:00:00 2022-05-29 10:00:00 Outpatient HUNDL, YULIET LEIGH BECERRIL [id number] [facility] 2022-05-21 00:00:00 2022-05-21 00:00:00 Outpatient HUNDL, YULIET BECERRIL [id number] [facility] 2022-05-02 00:00:00 2022-05-02 00:00:00 Outpatient HUNDL, YULIET BECERRIL [id number] [facility] 2022-04-28 00:00:00 2022-04-28 00:00:00 Outpatient SYDNEE GARCIA LE[facility] [id number] [facility] 2022-04-19 00:00:00 2022-04-19 00:00:00 Outpatient HUNDL, YULIET LEIGH BECERRIL [id number] [facility] 2022-02-07 13:45:00 2022-02-07 13:45:00 Outpatient LAB90 LEIGH BECERRIL [id number] [facility] 2022-02-07 09:25:00 2022-02-07 09:25:00 Outpatient LAB90 LEIGH BECERRIL [id number] [facility] 2022-02-07 00:00:00 2022-02-07 00:00:00 Outpatient HUNDAyah, YULIET BECERRIL [id number] [facility] 2022-02-06 10:30:00 2022-02-06 10:30:00 Outpatient HUNDL, YULIET BECERRIL [id number] [facility] 2022-02-05 14:45:00 2022-02-05 14:45:00 Outpatient JOHN PAUL GALVAN LEIGH BECERRIL [id number] [facility] 2021-08-23 00:00:00 2021-08-23 00:00:00 Outpatient YULIET OAKLEY LEIGH BECERRIL [id number] Leigh Bautista 2021-08-21 11:05:00 2021-08-21 11:05:00 Outpatient LAB90 LEIGH BECERRIL [id number] Leigh [facility] 2021-08-11 11:25:00 2021-08-11 11:25:00 Outpatient LAB90 LEIGH LEIGH [id number] [facility] 2021-08-11 10:30:00 2021-08-11 11:00:00 Office Visit Tony Yuliet Polo [id number] [id number] [facility] 2021-05-19 00:00:00 2021-05-19 00:00:00 Outpatient MD LEIGH SAUL [id number] [facility] 2021-03-23 10:45:00 2021-03-23 10:45:00 Outpatient LAB45 LEIGH BECERRIL [id number] [facility] 2021-03-23 09:51:14 2021-03-23 10:06:14 Office Visit Sydnee Garcia [facility] [id number] [id number] [facility] 2018-06-04 17:03:00 2018-06-04 17:03:00 Outpatient YANETH ABURTO [facility] RAD [id number] [facility] History and Physical Notes Date/Time Note Provider Source 2022-12-17 15:46:30 [id number]:46:30F ormatting of this note is different from the original.HPIReferred by: Reason for Referral: Colon Cancer ScreeningAllergies: No Known AllergiesCurrent Medications: Current Outpatient Medications on File Prior to Visit Medication Sig Dispense Refill Amlodipine Besylate 10 MG oral Tablet Take 1 tablet (10 mg total) by mouth daily 90 tablet 3 Docusate Sodium (Stool Softener) 100 MG oral Capsule Take 1 capsule (100 mg total) by mouth every 24 hours Ferrous Gluconate 240 (27 Fe) MG oral Tablet Take 1 tablet (240 mg total) by mouth daily 30 tablet 3 Rosuvastatin Calcium 10 MG oral Tablet Take 1 tablet (10 mg total) by mouth daily 90 tablet 3 No current facility-administered medications on file prior to visit. History of Present Illness: This is a 52 year old female being seen today for screening colonoscopy consultation. Blood in stool: Negative Wt. Loss: NegativeAbd. Pain: NegativeChange in Bowel Habits: Negative Anemia: Component Latest Ref Rng & Units 09/03/2022 RED BLOOD CELL (RBC) COUNT 3.77 - 5.28 10*6/uL 4.41 HEMOGLOBIN 11.1 - 15.9 g/dL 10.6 (L) HEMATOCRIT 34.0 - 46.6 % 34.4 MCV 79.0 - 97.0 fL 78.0 (L) MCH 26.6 - 33.0 pg 24.0 (L) MCHC 31.5 - 35.7 g/dL 30.8 (L) RDW 11.6 - 15.4 % 17.1 (H) PLATELET COUNT 150 - 450 10*3/uL 320 NEUTROPHILS Not estab. % 55 LYMPHS Not estab. % 28 Component Latest Ref Rng & Units 09/03/2022 ALT (SGPT) 0 - 32 IU/L 15 IRON BIND.CAP.(TIBC) 250 - 450 ug/dL 308 UIBC 131 - 425 ug/dL 267 IRON, SERUM 27 - 159 ug/dL 41 IRON SATURATION 15 - 55 % 13 (L) TSH 0.384 - 4.446 uIU/mL 1.680 FERRITIN, SERUM 15 - 150 ng/mL 48 Family Hx of Colon CA: NegativeN/V: Negative Fever: Negative Chills: Negative Sweating: Negative Dysphagia: Negative Had hysterectomy- heavy periordsREVIEW OF SYSTEMS: HEENT: Eyes: No visual disturbances. Ears: No hearing difficulty. Nose: No nasal congestion. Cardiovascular: No chest pain, heart trouble, orthopnea, or paroxysmal nocturnal dyspnea. Respiratory: No shortness of breath, cough. Genitourinary: No urinary frequency. Musculoskeletal: No history of body aches or painful joints. Neurological: No history of seizures or headaches. Skin: No skin rash. Hematological/Lymphatic: No easy bruising or palpable lymph nodes. Seasonal Allergies: NonePast Medical History: Diagnosis Date Hyperlipemia 03/23/2021 Primary hypertension 03/23/2021 Severe obesity (BMI 35.0-35.9 with comorbidity) (HCC) 03/23/2021 Past Surgical History: Procedure Laterality Date PARTIAL HYSTERECTOMY 04/17/2022 TUBAL LIGATION Social History Tobacco Use Smoking Status Never Smokeless Tobacco Never Social History Substance and Sexual Activity Alcohol Use Yes Alcohol/week: 0.6 oz Types: 1 Glasses of wine per week Comment: rarely Social History Substance and Sexual Activity Drug Use Never Family History Problem Relation Name Age of Onset Breast Cancer Mother 35 Heart attack Father 60 No Known AllergiesOutpatient Encounter Medications as of 12/17/2022 Medication Sig Dispense Refill Amlodipine Besylate 10 MG oral Tablet Take 1 tablet (10 mg total) by mouth daily 90 tablet 3 Docusate Sodium (Stool Softener) 100 MG oral Capsule Take 1 capsule (100 mg total) by mouth every 24 hours Ferrous Gluconate 240 (27 Fe) MG oral Tablet Take 1 tablet (240 mg total) by mouth daily 30 tablet 3 Rosuvastatin Calcium 10 MG oral Tablet Take 1 tablet (10 mg total) by mouth daily 90 tablet 3 No facility-administered encounter medications on file as of 12/17/2022. I have reviewed the patient's medical history in detail and updated EpicCare where needed.Physical Exam: BP 145/85 | Pulse 86 | Temp 98.1 ?F (36.7 ?C) (Oral) | Resp 20 | Ht 5' 8" (1.727 m) | Wt 271 lb (122.9 kg) | LMP 03/20/2021 (Exact Date) | BMI 41.21 kg/m? General: Pleasant, well appearing, in no acute distress.Neck: Soft, supple. No nodes.Chest:Clear to auscultation bilaterally without rhonchi, rales or wheezing.Cardiovascular: Upon auscultation, the heart demonstrates a regular rate andrhythm, without murmurs, rubs, or gallops.Abd: Abdomen is not distended. No palpable hepatosplenomegaly or masses. No rebound, tenderness, guarding or rigidity. Bowel sounds are present and appeared normal. No hernias. Extremities: No clubbing, no cyanosis, no edema.Skin: No discoloration, no rashes, no lesions.Groin: Negative nodesAssesment/Plan: Colorectal Cancer Screening and for anemia- but maybe due to mensesDiscussed evalAlternatives and options given. --- recommend colonoscopy---Risks, benefits including perforation, bleeding, reaction to medications and missed lesions discussed.RX prep given.Follow Up: colonoscopyQuestions Answered/Instructions Given: Yes, all questions answered to patient's satisfaction.A copy of this report will be sent to the referring provider.Loida Mathew of SystemsPhysical Exam 72588-5Vbrtlgu and physical lalaXZ0273-30-06M59:53:17History and physical noteTXT1.2.840.802881.1.13.131.2.7. 2.321336|[id number] for patient egjl27213-6Gaaguba and physical noteLNFormerly named [facility] [facility] [id number] [id number]:53:171.2.840.114780 .1.72.3.15|1.2.840.198630.1.13.131. [id number] [facility] Notes Date/Time Note Provider Source 2023-10-14 08:06:01 2786-14-45Y98:06:01F ormatting of this note is different from the original.Chief ComplaintPatient presents withPhysicalPatient [place] [address]-2Zutan XtfiJQ2860-08-95N85:07:59Nurse NoteTXT1.2.840.705087.1.13.131.2.7.2. 421181|[id number] for patient dryi19459-2Ipvyu NoteLNNARRATIVEFormatted C-CDA narrative text[id number] 9607-09-07P43:07:591.2.840.421899.1.7 2.3.15|1.2.840.589609.1.13.131.2.7.2. [id number] [facility] 2023-07-22 13:39:24 4224-80-07G93:39:24F ormatting of this note is different from the original.Chief ComplaintPatient presents withDizzinessHas felt off balance for about a week, right ear has been [place] [address]-5Kiehf XslyYE6176-08-69X05:43:06Nurse NoteTXT1.2.840.379186.1.13.131.2.7.2. 251514|[id number] for patient paur38897-6Zgmqp NoteLNNARRATIVEFormatted C-CDA narrative textMike Ville [id number] [facility] [id number] 6196-30-01R25:43:061.2.840.073797.1.7 2.3.15|1.2.840.989831.1.13.131.2.7.2. [id number] [facility] 2022-12-25 13:58:22 9592-66-80U97:58:22F ormatting of this note is different from the original.Chief Complaint Patient presents with Hematology Follow-up Iron deficiency anemia, unspecified iron deficiency anemia type Cathy Urrutia 17991-8Wvdcp OffzXY9778-98-09C56:59:53Nurse NoteTXT1.2.840.130490.1.13.131.2.7.2. 267119|[id number] for patient wbbz31333-7Pinrr Note[id number] 6103-20-70P61:59:531.2.840.966299.1.7 2.3.15|1.2.840.298181.1.13.131.2.7.2. [id number] [facility] 2022-12-17 15:33:17 2675-49-20C88:33:17F ormatting of this note is different from the original.Chief Complaint Patient presents with Anemia Colon Cancer Screening Consult - Iron deficiency anemia , unspecified iron deficiency anemia type. [place] [address]-5Csqxh ZwbtGL6231-55-35A39:34:23Nurse NoteTXT1.2.840.282372.1.13.131.2.7.2. 814205|[id number] for patient qdny18529-5Oregs NoteLN[id number] 0386-75-49B83:34:231.2.840.654381.1.7 2.3.15|1.2.840.236851.1.13.131.2.7.2. [id number] [facility]
[2023-11-06] MEDS ORDERED: DIAZEPAM 5 MG TABLET ONE (18:04)
[2023-11-06] MEDS ORDERED: HYDROCODONE/APAP 5/325 MG TAB ONE (18:04)
--- NOTE | 2023-11-06 18:04 | RAD REPORT ---
EXAM DESCRIPTION: US - Extremity Venous Uni Ltd - 11/06/2023 5:58 pm CLINICAL HISTORY: Pain COMPARISON: None. TECHNIQUE: Real-time sonographic evaluation of the right lower extremity deep venous system was perf ormed. FINDINGS: Normal compressibility, flow augmentation, phasic flow and spontaneous flow is identified in the right lower extremity deep venous system. No intraluminal filling defects seen. IMPRESSION: No DVT in the right lower extremity.
--- NOTE | 2023-11-06 18:24 | EDPHYS ---
Physician Documentation [facility] Name: Batool Last Age: 53 yrs Sex: Female : 1970 Arrival Date: 11/06/2023 Time: 16:26 Bed 12 Private MD: ED Physician Sarbjit Arthur HPI: 11/05 18:21 This 53 yrs old Black Female presents to ER via Ambulatory with complaints of Leg Pain. kb 18:21 Pt is a 53 year old female who presents for pain in right leg. STates it feels like a kb lynne horse. States she felt some cramping in her right buttock this morning and it is now mostly behind knee and in calf. Denies injury/trauma. . 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 - Infectious Disease History:: Denies. - Social history:: Smoking status: Patient denies any tobacco usage or history of. ROS: 18:21 Constitutional: As per HPI kb Exam: 18:21 Constitutional: This is a well developed, well nourished patient who is awake, alert, kb and in no acute distress. Head/Face: Normocephalic, atraumatic. ENT: Moist Mucous membranes Cardiovascular: Regular rate Respiratory: Respirations even and unlabored. No increased work of breathing. Talking in full sentences Abdomen/GI: Soft, non-tender. No distention Skin: Warm, dry with normal turgor. Normal color. Neuro: Awake and alert, GCS 15, oriented to person, place, time, and situation. Moves all extremities. Normal gait. 18:21 Musculoskeletal/extremity: Calves: are tender, on right, Vital Signs: 16:45 BP 201 / 100; Pulse 76; Resp 16; Temp 97.8(TE); Pulse Ox 100% on R/A; Weight 120.2 kg; tl4 Height 5 ft. 7 in. ; Pain 8/10; 18:33 BP 173 / 94; Pulse 76; Resp 16; Pulse Ox 99% ; as6 18:42 BP 153 / 82; Pulse 74; Resp 18; Pulse Ox 100% ; as6 16:45 Body Mass Index 41.50 (120.20 kg, 170.18 cm) tl4 16:45 Pain Scale: Adult tl4 MDM: 16:33 Patient medically screened. kb 18:23 Differential diagnosis: sciatica, dvt, strain, muscle spasm. Data reviewed: vital kb signs, nurses notes. Test considered but Not performed: X-ray: x-ray considered but pt has no bony tenderness. Counseling: I had a detailed discussion with the patient and/or guardian regarding the historical points, exam findings, and any diagnostic results supporting the discharge/admit diagnosis, radiology results, the need for outpatient follow up, a family practitioner, to return to the emergency department if symptoms worsen or persist or if there are any questions or concerns that arise at home. 11/05 16:52 Order name: US Extremity Venous Unilateral Ltd; Complete Time: 18:07 kb 11/05 18:21 Order name: Vital Signs; Complete Time: 18:33 kb Administered Medications: 18:13 Not Given (Patient Refused): hydrocodone-acetaminophen5 mg-325 mg 1 tabs PO once as6 18:13 Drug: Diazepam PO 5 mg PO once Route: PO; as6 18:45 Follow up: Response: No adverse reaction as6 Disposition Summary: 11/06/23 18:24 Discharge Ordered Notes: Location: Home kb Condition: Stable kb Diagnosis - Pain in right leg kb Followup: kb - With: Emergency Department - When: As needed - Reason: Worsening of condition Followup: kb - With: Private Physician - When: 2 - 3 days - Reason: Recheck today's complaints, Continuance of care, Re-evaluation by your physician Discharge Instructions: - Discharge Summary Sheet kb - Musculoskeletal Pain kb Forms: - Medication Reconciliation Form kb - Antibiotic Education kb - Prescription Opioid Use kb - Patient Portal Instructions kb - Leadership Thank You Letter kb Prescriptions: - Diclofenac Sodium 75 mg Oral tablet, delayed release (enteric coated) - take 1 tablet ORAL route 2 times per day As needed; 30 tablet; Refills: 0, kb Product Selection Permitted - orphenadrine citrate 100 mg Oral Tablet Sustained Release - take 1 tablet ORAL route 2 times per day As needed; 20 tablet; Refills: 0, kb Product Selection Permitted Signatures: Dispatcher [employer] Aurora Valentin FNP-C FNP-Ckb Slawson, Ashby, RN RN as6 Logdahl, Carlos, RN RN tl4
--- NOTE | 2023-11-06 18:24 | ER ---
Nurse's Notes [facility] Name: Batool Last Age: 53 yrs Sex: Female : 1970 Arrival Date: 11/06/2023 Time: 16:26 Bed 12 Private MD: Diagnosis: Pain in right leg Presentation: 11/05 16:45 Chief complaint: Patient states: Pt c/o pain in posterior and lateral right calf since tl4 this morning. Pt states pain feels like a "charley horse". No injury. Pt states no relief with OTC meds. Pt states she is unable to find a position of comfort. Pt states pain feels similar to sciatica. Coronavirus screen: At this time, the client does not indicate any symptoms associated with coronavirus-19. Ebola Screen: No symptoms or risks identified at this time. Initial Sepsis Screen: Does the patient meet any 2 criteria? No. Patient's initial sepsis screen is negative. Does the patient have a suspected source of infection? No. Patient's initial sepsis screen is negative. Risk Assessment: Do you want to hurt yourself or someone else? Patient reports no desire to harm self or others. Onset of symptoms was November 06, 2023. 16:45 Method Of Arrival: Ambulatory tl4 16:45 Acuity: SILVANA 3 tl4 Triage Assessment: 16:49 General: Appears uncomfortable, Behavior is cooperative. Pain: Complains of pain in tl4 right leg. EENT: No signs and/or symptoms were reported regarding the EENT system. Neuro: Level of Consciousness is awake, alert, obeys commands, Oriented to person, place, time, situation, Moves all extremities. Full function Gait is steady, Speech is normal. Cardiovascular: Capillary refill < 3 seconds Patient's skin is warm and dry. Respiratory: Airway is patent Respiratory effort is even, unlabored, Respiratory pattern is regular, symmetrical. GI: No signs and/or symptoms were reported involving the gastrointestinal system. : No signs and/or symptoms were reported regarding the genitourinary system. Derm: No signs and/or symptoms reported regarding the dermatologic system. Musculoskeletal: Reports pain in right leg. 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 - Infectious Disease History:: Denies. - Social history:: Smoking status: Patient denies any tobacco usage or history of. Screenin:44 [facility] ED Fall Risk Assessment (Adult) History of falling in the last 3 months, as6 including since admission No falls in past 3 months (0 pts) Confusion or Disorientation No (0 pts) Intoxicated or Sedated No (0 pts) Impaired Gait No (0 pts) Mobility Assist Device Used No (0 pt) Altered Elimination No (0 pt) Score/Fall Risk Level 0 - 2 = Low Risk Oriented to surroundings, Maintained a safe environment, Educated pt \\T\\ family on fall prevention, incl call for assistance when getting out of bed, Assessed \\T\\ reinforced patient's understanding of fall precautions. Abuse screen: Denies threats or abuse. Denies injuries from another. Nutritional screening: No deficits noted. Tuberculosis screening: No symptoms or risk factors identified. Assessment: 18:43 Reassessment: Patient appears in no apparent distress at this time. Patient and/or as6 family updated on plan of care and expected duration. Pain level reassessed. Patient is alert, oriented x 3, equal unlabored respirations, skin warm/dry/pink. pt reports slight improvement in pain. Vital Signs: 16:45 BP 201 / 100; Pulse 76; Resp 16; Temp 97.8(TE); Pulse Ox 100% on R/A; Weight 120.2 kg; tl4 Height 5 ft. 7 in. ; Pain 8/10; 18:33 BP 173 / 94; Pulse 76; Resp 16; Pulse Ox 99% ; as6 18:42 BP 153 / 82; Pulse 74; Resp 18; Pulse Ox 100% ; as6 16:45 Body Mass Index 41.50 (120.20 kg, 170.18 cm) tl4 16:45 Pain Scale: Adult tl4 ED Course: 16:27 Patient arrived in ED. ra3 16:33 Aurora Polo FNP-C is PHCP. kb 16:33 Sarbjit Arthur MD is Attending Physician. kb 16:48 Triage completed. tl4 16:50 Arm band placed on left wrist. tl4 18:00 US Extremity Venous Unilateral Ltd In Process Unspecified. EDMS 18:04 Elia Brown, JAMES is Primary Nurse. as6 18:44 Bed in low position. Call light in reach. Provided Education on: follow up. Warm as6 blanket given. 18:44 No provider procedures requiring assistance completed. Patient did not have IV access as6 during this emergency room visit. Administered Medications: 18:13 Not Given (Patient Refused): hydrocodone-acetaminophen5 mg-325 mg 1 tabs PO once as6 18:13 Drug: Diazepam PO 5 mg PO once Route: PO; as6 18:45 Follow up: Response: No adverse reaction as6 Medication: 18:44 VIS not applicable for this client. as6 Outcome: 18:24 Discharge ordered by . lia 18:44 Discharged to home via wheelchair, with family, as6 18:44 Condition: stable 18:44 Discharge instructions given to patient, family, Instructed on discharge instructions, follow up and referral plans. medication usage, Demonstrated understanding of instructions, follow-up care, medications, Prescriptions given X 2, 18:45 Patient left the ED. as6 Signatures: Dispatcher [employer] EDMS Aurora Polo, BALJIT-C BALJIT-Elia Barnes RN RN as6 Carlos Butler RN RN tl4 Livia Ritchie ra3 Corrections: (The following items were deleted from the chart) 16:51 16:45 Chief complaint: Patient states: Pt c/o pain in posterior and lateral right calf tl4 since this morning. No injury. Pt states no relief with OTC meds. Pt states she is unable to find a position of comfort. Pt states pain feels similar to sciatica. tl4
[2023-11-06 19:22] VITALS: BP 153/82; TEMP 97.8; O2SAT 100
== END 2023-11-06 18:45 | disposition home or self-care (01) ==
LOC: ER 16:26
DX: M79.604 Pain in right leg (principal)
CPT/HCPCS: 93971; 99283